=== PATIENT | female | born 1990 | race Caucasian/White ===

== ENCOUNTER 2021-01-02 14:44 | Emergency (ER) | payer BC ==
[~2021-01-02] VITALS: Ht 149.9 cm; Wt 69.4 kg
[2021-01-02 14:55] VITALS: BP_SYST 131
[2021-01-02 18:20] VITALS: BP_SYST 131
== END 2021-01-02 18:20 | disposition home or self-care (01) ==
LOC: SED 14:44
DX: O26.893 Other specified pregnancy related conditions, third trimester (principal); M79.89 Other specified soft tissue disorders; Z3A.33 33 weeks gestation of pregnancy; J45.909 Unspecified asthma, uncomplicated; Z88.8 Allergy status to other drugs, medicaments and biological substances
CPT/HCPCS: 93971; 99284

== ENCOUNTER 2021-01-11 12:49 | Observation (INO) | payer BC ==
[~2021-01-11] VITALS: Ht 149.9 cm; Wt 70.8 kg
[2021-01-11] MEDS ORDERED: FIORCET PO ONE (14:00)
[2021-01-11] MEDS ORDERED: HYDROcodone/ACETAMIN 5-325 MG TAB (NORCO/ VICODIN) PO ONE (14:30)
== END 2021-01-11 15:10 | disposition home or self-care (01) ==
LOC: SPU 12:49
PROVIDERS: ADMIT Specialist; ATTEND Specialist
DX: O60.03 Preterm labor without delivery, third trimester (principal); Z3A.35 35 weeks gestation of pregnancy
CPT/HCPCS: 81002; G0378

== ENCOUNTER 2021-01-19 02:06 | Observation (INO) | payer BC ==
[~2021-01-19] VITALS: Ht 149.9 cm; Wt 70.8 kg
[2021-01-19 10:03] LABS: BILIRUBIN,URINE NEGATIVE (NEGATIVE); BLOOD, URINE NEGATIVE (NEGATIVE); CLARITY/URINE CLEAR (CLEAR); COLOR,URINE YELLOW (YELLOW); GLUCOSE,URINE NEGATIVE (NEGATIVE); KETONES,URINE NEGATIVE (NEGATIVE); LEUKOCYTE ESTERASE ,URINE NEGATIVE (NEGATIVE); NITRITE, URINE NEGATIVE (NEGATIVE); PH,URINE 6.5 (5.0-8.0); PROTEIN URINE NEGATIVE (NEGATIVE)
== END 2021-01-19 11:30 | disposition home or self-care (01) ==
LOC: SPU 02:06
PROVIDERS: ADMIT Specialist; ATTEND Specialist
DX: O62.9 Abnormality of forces of labor, unspecified (principal); Z3A.36 36 weeks gestation of pregnancy
CPT/HCPCS: 76805; 81003; G0378

== ENCOUNTER 2021-02-01 19:11 | Observation (INO) | payer BC ==
[~2021-02-01] VITALS: Ht 149.9 cm; Wt 71.7 kg
== END 2021-02-01 21:50 | disposition home or self-care (01) ==
LOC: SPU 19:11
PROVIDERS: ADMIT Specialist; ATTEND Specialist
DX: O62.9 Abnormality of forces of labor, unspecified (principal); Z3A.38 38 weeks gestation of pregnancy
CPT/HCPCS: 81002; G0378

== ENCOUNTER 2021-02-15 15:00 | Observation (INO) | payer BC ==
[~2021-02-15] VITALS: Ht 149.9 cm; Wt 73.0 kg
== END 2021-02-15 19:37 | disposition home or self-care (01) ==
LOC: SPU 15:00
PROVIDERS: ADMIT Specialist; ATTEND Specialist
DX: O62.9 Abnormality of forces of labor, unspecified (principal); Z3A.40 40 weeks gestation of pregnancy
CPT/HCPCS: 76805; G0378

== ENCOUNTER 2021-02-16 09:06 | Inpatient (IN) | payer BC ==
[~2021-02-16] VITALS: Ht 149.9 cm; Wt 73.0 kg
[2021-02-16] MEDS ORDERED: CITRIC ACID/SODIUM CITRATE 30 ML UDC PO ONE (10:30)
[2021-02-16] MEDS ORDERED: CEFAZOLIN 2 GM IVPB PREMIX 50 ML IV ONE (10:30)
[2021-02-16] MEDS ORDERED: LR 1,000 ML IV ONE (10:30)
[2021-02-16 11:09] LABS: BASOPHILS # (AUTO) 0.1 K/uL (0.0-0.2); BASOPHILS % (AUTO) 0.6 % (0.0-2.0); EOSINOPHILS # (AUTO) 0.1 K/uL (0.0-0.4); EOSINOPHILS % (AUTO) 0.6 % (0.0-4.0); HEMATOCRIT 33.9 % (36-48); HEMOGLOBIN 11.9 g/dL (12.0-16.0); LYMPHOCYTES # (AUTO) 2.1 K/uL (1.0-5.5); LYMPHOCYTES % (AUTO) 19.4 % (20.5-51.5); MEAN CORPUSCULAR HEMOGLOBIN 32 pg (27-31); MEAN CORPUSCULAR HGB CONC 35 % (32-36); MEAN CORPUSCULAR VOLUME 90 fL (79.0-98.0); MONOCYTES # (AUTO) 0.6 K/uL (0.0-1.0); MONOCYTES % (AUTO) 5.9 % (1.7-9.3); NEUTROPHILS # (AUTO) 7.9 K/uL (1.8-7.7); NEUTROPHILS % (AUTO) 73.5 % (40.0-70.0); PLATELET COUNT (AUTO) 168 K/uL (130-430); RED BLOOD CELL COUNT(AUTO) 3.77 MIL/uL (4.2-6.2); RED CELL DISTRIBUTION WIDTH 14.4 % (9.0-15.0); WHITE BLOOD COUNT (AUTO) 10.7 K/uL (4.8-10.8)
[2021-02-16] MEDS ORDERED: AMPICILLIN SODIUM 2 GM in NS 100 ML IV ONE (11:15)
[2021-02-16] MEDS ORDERED: AMPICILLIN SODIUM 2 GM VIAL ONE (11:45)
[2021-02-16 11:51] LABS: INR 0.9 (0.8-1.2); PROTHROMBIN TIME 9.8 SECS (9.5-12.5)
[2021-02-16 11:54] LABS: BILIRUBIN,URINE NEGATIVE (NEGATIVE); BLOOD, URINE NEGATIVE (NEGATIVE); CLARITY/URINE CLEAR (CLEAR); COLOR,URINE YELLOW (YELLOW); GLUCOSE,URINE NEGATIVE (NEGATIVE); KETONES,URINE NEGATIVE (NEGATIVE); LEUKOCYTE ESTERASE ,URINE 2+ (NEGATIVE); NITRITE, URINE NEGATIVE (NEGATIVE); PH,URINE 7.5 (5.0-8.0); PROTEIN URINE NEGATIVE (NEGATIVE); UROBILINOGEN,URINE 0.2 (0.2-1.0)
[2021-02-16 13:58] LABS: BACTERIA,URINE FEW /HPF (None Seen); MUCUS,URINE 1+ /LPF (None Seen); RBC,URINE 0-3 /HPF (0-3)
[2021-02-16] MEDS ORDERED: MORPHINE SULFATE 10MG/10ML PF AMP EP ONE (14:50)
[2021-02-16] MEDS ORDERED: LR 1,000 ML IV.SOLN IV ONE (14:50)
[2021-02-16] MEDS ORDERED: BUPIVACAINE /DEX PF 0.75% SPINAL 2 ML AMP INJ ONE (14:50)
[2021-02-16] MEDS ORDERED: OXYTOCIN 10 UNIT/ML VIAL IV ONE (14:50)
[2021-02-16] MEDS ORDERED: LR 1,000 ML IV SCH (15:00)
[2021-02-16] MEDS ORDERED: HYDROcodone/ACETAMIN 5-325 MG TAB (NORCO/ VICODIN) PO PRN (15:00)
[2021-02-16] MEDS ORDERED: DIPH-TET-PERTUS Vaccine 0.5 ML VIAL (ADACEL) I.M. PRN (15:00)
[2021-02-16] MEDS ORDERED: OXYCODONE/ACETAMINOPHEN *10*mg/325 mg TABLET PO PRN (15:00)
[2021-02-16] MEDS ORDERED: LANOLIN 7 GM OINT. TP PRN (15:00)
[2021-02-16] MEDS ORDERED: MEASLES,MUMPS&RUBELLA VACC/PF 12500 UNIT/0.5 ML VIAL SUBQ PRN (15:00)
[2021-02-16] MEDS ORDERED: RHO(D) IMMUNE GLOBULIN/MALTOSE 1500 UNITS/1.3 ML (WINHRO) IM PRN (15:00)
[2021-02-16] MEDS ORDERED: BISACODYL 10 MG/SUPPOSITORY RC PRN (15:00)
[2021-02-16] MEDS ORDERED: ANUSOL 1 EA SUPP.RECT (PREPARATION H) RC PRN (15:00)
[2021-02-16] MEDS ORDERED: NALOXONE HCL 0.4 MG/ML AMP (NARCAN) IVP PRN ×3 (15:00→16:00)
[2021-02-16] MEDS ORDERED: TEMAZEPAM 15 MG CAPSULE PO PRN (15:00)
[2021-02-16] MEDS ORDERED: fentaNYL CITRATE/PF 100 MCG/2 ML AMP IVP PRN ×2 (16:00)
[2021-02-16] MEDS ORDERED: MORPHINE SULFATE 10MG/10ML PF AMP SP SCH (16:00)
[2021-02-16] MEDS ORDERED: ONDANSETRON HCL 4 MG/2 ML VIAL IVP PRN ×2 (16:00)
[2021-02-16] MEDS ORDERED: NALBUPHINE HCL 10 MG/ML AMP IVP PRN (16:00)
[2021-02-16] MEDS ORDERED: METOCLOPRAMIDE HCL 10 MG/2 ML VIAL IVP PRN (16:00)
[2021-02-16] MEDS ORDERED: KETOROLAC TROMETHAMINE 60 MG/2 ML VIAL IM PRN (16:00)
[2021-02-16] MEDS ORDERED: ONDANSETRON HCL 4 MG/2 ML VIAL ONE (16:30)
[2021-02-16] MEDS ORDERED: PROMETHAZINE INJ.Non-Formulary 25 MG/ML AMP IVP PRN (18:30)
[2021-02-16] MEDS ORDERED: MEPERIDINE 50 MG/ML VIAL IVP PRN (18:30)
[2021-02-16 20:43] VITALS: BP_SYST 118
[2021-02-16] MEDS ORDERED: SENNOSIDES/DOCUSATE SODIUM 1 TAB TABLET(SENOKOT-S) PO SCH (21:00)
[2021-02-16] MEDS: OXYTOCIN/0.9 % SODIUM CHLORIDE 1,000 ML IV SCH (22:29)
[2021-02-16] MEDS: CEFAZOLIN 1 GM IVPB PREMIX 50 ML IV SCH (22:36)
[2021-02-16] MEDS: SIMETHICONE 80 MG TAB.CHEW PO PRN (22:37)
[2021-02-16] MEDS: DOCUSATE SODIUM 100 MG CAPSULE PO SCH (22:37)
[2021-02-16] MEDS: KETOROLAC TROMETHAMINE 30 MG VIAL IVP SCH (22:42)
[2021-02-17 07:38] LABS: BASOPHILS % (AUTO) 0.4 % (0.0-2.0); EOSINOPHILS # (AUTO) 0.1 K/uL (0.0-0.4); EOSINOPHILS % (AUTO) 0.4 % (0.0-4.0); HEMATOCRIT 26.2 % (36-48); LYMPHOCYTES # (AUTO) 1.6 K/uL (1.0-5.5); LYMPHOCYTES % (AUTO) 13.1 % (20.5-51.5); MEAN CORPUSCULAR HEMOGLOBIN 32 pg (27-31); MEAN CORPUSCULAR HGB CONC 34 % (32-36); MEAN CORPUSCULAR VOLUME 92 fL (79.0-98.0); MONOCYTES # (AUTO) 0.8 K/uL (0.0-1.0); MONOCYTES % (AUTO) 6.6 % (1.7-9.3); NEUTROPHILS # (AUTO) 9.9 K/uL (1.8-7.7); NEUTROPHILS % (AUTO) 79.5 % (40.0-70.0); PLATELET COUNT (AUTO) 166 K/uL (130-430); RED BLOOD CELL COUNT(AUTO) 2.85 MIL/uL (4.2-6.2); RED CELL DISTRIBUTION WIDTH 14.7 % (9.0-15.0); WHITE BLOOD COUNT (AUTO) 12.5 K/uL (4.8-10.8)
[2021-02-17] MEDS: OXYTOCIN/0.9 % SODIUM CHLORIDE 1,000 ML IV SCH (07:58)
[2021-02-17] MEDS: DIPHENHYDRAMINE INJ 50 MG/ML VIAL IVP PRN ×2 (08:00→11:48)
[2021-02-17] MEDS: DOCUSATE SODIUM 100 MG CAPSULE PO SCH (10:03)
[2021-02-17] MEDS: SIMETHICONE 80 MG TAB.CHEW PO PRN ×2 (10:03→13:33)
[2021-02-17] MEDS: CEFAZOLIN 1 GM IVPB PREMIX 50 ML IV SCH (10:30)
[2021-02-17] MEDS: KETOROLAC TROMETHAMINE 30 MG VIAL IVP SCH ×2 (11:16→17:18)
[2021-02-18] MEDS: IBUPROFEN 600 MG TABLET PO SCH ×2 (05:24→12:30)
[2021-02-18] MEDS: DOCUSATE SODIUM 100 MG CAPSULE PO SCH ×2 (05:26→12:30)
[2021-02-18] MEDS: OXYCODONE/ACETAMINOPHEN 5-325 TABLET PO PRN ×2 (08:41→12:30)
[2021-02-18] MEDS: SIMETHICONE 80 MG TAB.CHEW PO PRN (08:44)
== END 2021-02-18 12:50 | disposition home or self-care (01) | DRG 787 ==
LOC: SPU 09:06
PROVIDERS: ADMIT Specialist; ATTEND Specialist
PROC: 10D00Z1 Extraction of Products of Conception, Low, Open Approach (ICD-10-PCS; principal; 2021-02-16 15:00)
DX: O34.211 Maternal care for low transverse scar from previous cesarean delivery (principal); O41.03X0 Oligohydramnios, third trimester, not applicable or unspecified; O32.3XX0 Maternal care for face, brow and chin presentation, not applicable or unspecified; Z3A.40 40 weeks gestation of pregnancy; Z37.0 Single live birth
CPT/HCPCS: 36415; 81000; 85025; 85610-TC; 85730-TC; 86592; 86886; 86900; 86901; 87536; 94760; J0290; J0690; J1200; J1885; J2175; J2274; J2405; J2590; J3490; J7120